=== PATIENT | male | born 1945 | race Caucasian/White ===

== ENCOUNTER → 2022-10-17 10:37 | Outpatient (BNVA) | payer MEDICARE, SELFPAY | PROVIDERS: Visit Provider Urology | DX: R31.0 Gross hematuria (principal); N32.89 Other specified disorders of bladder; R33.8 Other retention of urine | CPT/HCPCS: 52000; 99203; 99205 ==

== ENCOUNTER 2022-10-17 15:29 | Inpatient (IN) | payer MEDICARE, SELFPAY ==
[2022-10-17] VITALS (8 sets, daily range): BP systolic 125–167; BP diastolic 66–90; PULSE 69–104; RESP 15–16; TEMP 36.4–36.8; O2SAT 99–100; BMI 21.2; BMI 19.4
[2022-10-17] MEDS: sodium chloride 0.9% 1,000 ML 999 ML IV (16:40)
--- NOTE | 2022-10-17 16:46 | W.ED.MALEGU ---
HPI - Male Genitourinary General: Chief complaint: Urogenital-Male Stated complaint: Ovidio sent, urogenital Time Seen by Provider: 10/17/22 15:46 Source: patient Mode of arrival: ambulatory History of Present Illness: 76-year-old male referred to the ER by Dr. Nolan. He has been having difficulty with emptying his bladder due to blood clots. He has a known bladder mass and's been leading. He is not on any anticoagulants. Dr. Nolan had seen him in the office placed a Rivera and was irrigating but not could not get a clear referred him to the emergency room for further evaluation and admission. Patient denies any fever sweats chills has had urinary retention. Onset (ago): month(s) Duration: constant Location: abdomen Severity: severe Quality: aching Relieving factors: none Exacerbating factors: none Associated symptoms: Reports dysuria, hematuria, urinary retention and mass; Deny discharge, fevers/chills, nausea, rash, swelling, urinary incontinence or vomiting Review of Systems Const: Denies: fever(s), chills, body aches, change in appetite, fatigue or malaise ENMT: Denies: throat pain, ear or mastoid pain, nasal discharge or nasal congestion Card: Denies: chest pain, edema, dyspnea on exertion or orthopnea Resp: Denies: dyspnea, productive cough or non-productive cough GI: Reports: abdominal pain; Denies: nausea or vomiting : Reports: difficulty urinating, dysuria and hematuria; Denies: urinary incontinence Skin/Breast: Denies: rash or pruritus FOR[facility]LY [facility] ED PFSH: Medical History Clot retention of urine Gross hematuria Family History Father , AT AGE 48 MVA (motor vehicle accident) Mother , AT AGE 79 Liver disease Social History Smoking and tobacco status: former smoker Alcohol intake: current Alcohol intake frequency: 0-2 Drinks per Day Marital status: Current occupational status: retired History of recent travel: No Physical Exam Const: COMMON NORMALS: no acute distress GENERAL APPEARANCE: cooperative and comfortable ORIENTATION/CONSCIOUSNESS: Yes awake, Yes oriented to person, Yes oriented to place and Yes oriented to time HENMT: COMMON NORMALS: normocephalic, atraumatic and hearing grossly normal bilaterally HEAD & SCALP: normocephalic and atraumatic Resp: COMMON NORMALS: normal respiratory effort, No retractions, No use of accessory muscles and clear to auscultation bilaterally AUSCULTATION: clear to auscultation bilaterally Cardio: COMMON NORMALS: regular rate, regular rhythm and No murmurs present (Cardio) RATE: regular rate RHYTHM: regular rhythm GI: COMMON NORMALS: Soft to palpation and No hepatosplenomegaly present AUSCULTATION: Yes normoactive bowel sounds PALPATION: Yes Soft to palpation, No Tenderness to palpation present (GI), No Guarding due to palpation present (GI) and Yes No hepatosplenomegaly present : COMMON NORMALS: Yes no CVA tenderness BLADDER/KIDNEY EXAM: Yes no CVA tenderness Back/Pelvis: COMMON NORMALS: no CVA tenderness Extremity: COMMON NORMALS: normal to inspection, capillary refill normal, no clubbing, cyanosis or edema, no calf tenderness and no pedal edema Neuro: SENSORIUM/ORIENTATION: Yes oriented to person, Yes oriented to place and Yes oriented to time Skin: COMMON NORMALS: no rashes or lesions noted GENERAL SKIN EXAM: no rashes or lesions noted Course Vital Signs: Vital signs: Vital Signs Temperature 98.2 F 10/17/22 15:39 Pulse Rate 69 10/17/22 16:33 Respiratory Rate 16 10/17/22 16:33 Blood Pressure 157/73 10/17/22 16:33 Pulse Oximetry 100 10/17/22 16:33 Oxygen Delivery Me thod 10/17/22 16:33 MDM - Male Medical Decision Making Hematuria with urinary retention. Zosyn initiated labs have been drawn and patient movements Dr. Nolan orders written Medical Records I reviewed the patient's medical records. Lab Data I reviewed the patient's lab results. 10/17/22 16:27 10/17/22 16:27 Discharge Plan Discharge Patient Disposition: Admitted As Inpatient Clinical Impression: Gross hematuria, Clot retention of urine, Bladder mass Condition: Stable Coding Level of Care Code ED Ui Ux Web Developer for Myranda Azul
[2022-10-17] MEDS: piperacillin-tazobactam 3.375 GM in sodium chloride 0.9% (plus) 50 ML IV (16:56)
[2022-10-17 17:07] LABS: Basophils % 0.1 %; Eosinophils % 0.1 %; Hematocrit 21.2 % (42.0-52.0); Lymphocytes # 0.2 10^3/uL (0.8-4.8); Lymphocytes % 1.3 %; Mean Corpuscular HGB Conc 30.7 g/dL (30.0-36.0); Mean Corpuscular Hemoglobin 27.2 pg (28.0-34.0); Mean Corpuscular Volume 88.7 fl (80-94); Mean Platelet Volume 10.9 fL (7.4-10.4); Monocytes # 0.4 10^3/uL (0.2-0.9); Monocytes % 2.7 %; Neutrophils # 12.15 10^3/uL (1.8-7.7); Neutrophils % 95.2 %; Nucleated Red Blood Cells % 0 %; Platelet Count 289 10^3/cmm (130-400); Red Blood Count 2.39 10^6/uL (4.1-5.3); Red Cell Distribution Width 16.7 % (12.1-15.1); White Blood Count 12.8 10^3/uL (4.0-10.0)
[2022-10-17 18:26] LABS: Hemoglobin 6.5 g/dL (11.7-16.6)
[2022-10-17 18:35] LABS: Alanine Aminotransferase 10 U/L (0-41); Alkaline Phosphatase 63 U/L (40-130); Anion Gap 31.4 (5-19); Aspartate Amino Transferase 14 U/L (0-40); Calcium 8.8 mg/dL (8.5-10.5); Chloride 102 mmol/L (98-107); Globulin 3.7 g/dL (1.3-4.6); Glucose 122 mg/dL (65-115); Potassium 6.4 mmol/L (3.5-5.1); Sodium 135 mmol/L (136-145); Total Bilirubin 0.2 mg/dL (0.15-1.2); Total Protein 6.7 g/dL (6.6-8.7)
[2022-10-17 18:41] LABS: Blood Urea Nitrogen 177 mg/dL (8-23); Osmolality Calculated 340 mOsm/kg (285-295)
[2022-10-17 18:42] LABS: Carbon Dioxide 8 mmol/L (22-29); Creatinine Clr Calc Pharmacy 2.3651
[2022-10-17 20:13] LABS: Add Urine Microscopic? YES; Bilirubin Urine Neg (Negative); Blood Urine 3+ (Negative); Glucose Urine UA Norm (Normal); Ketones Urine Negative (Negative); Leukocyte Esterase Urine Trace (Negative); Nitrate Urine Negative (Negative); Protein Urine 3+ (Negative); RBC Urine TOO NUMEROUS TO CNT /hpf (0-2); Specific Gravity, Urine 1.005 (1.005-1.030); Squamous Epithelial Cell Urine 0-4 /hpf (0-5); Urine Appearance Hazy (CLEAR); Urine Color Red (Yellow); Urobilinogen Urine Norm (Negative); pH Urine 7 (5-7)
[2022-10-17 20:14] LABS: Add Urine Culture? Yes; WBC Urine 0-4 /hpf (0-5)
[2022-10-17] MEDS: sodium chloride 0.9% 1,000 ML 100 ML IV (20:43)
--- NOTE | 2022-10-17 21:25 | PC.NURSE ---
Patient arrived to the floor, Dr. Nolan notified of patient HGB 6.5, 2 units of RBC ordered.
--- NOTE | 2022-10-17 22:19 | PC.NURSE ---
Patient had leaking around urinary catheter, 750ml was used to manually irrigate, several small clots were removed.
--- NOTE | 2022-10-17 22:33 | CTR_ITS ---
PROCEDURE INFORMATION: Exam: CT Abdomen And Pelvis Without Contrast Exam date and time: 10/17/2022 11:13 PM Age: 76 years old Clinical indication: Unable to urinate. Receiving bladder irrigation. Other: Bola creat 28; Additional info: Bola CR 28 TECHNIQUE: Imaging protocol: Computed tomography of the abdomen and pelvis without contrast. Radiation optimization: All CT scans at this facility use at least one of these dose optimization techniques: automated exposure control; mA and/or kV adjustment per patient size (includes targeted exams where dose is matched to clinical indication); or iterative reconstruction. COMPARISON: No relevant prior studies available. RADIATION DOSE METRICS: Total DLP (mGy-cm): 401.14 FINDINGS: Lungs: Lung bases are clear. Liver: The liver is normal. Gallbladder and bile ducts: The gallbladder is normal. There is no biliary dilation. Pancreas: There is mild atrophy of the pancreas. Spleen: The spleen is unremarkable. Adrenal glands: The adrenal glands are unremarkable. Kidneys and ureters: Moderate bilateral hydronephrosis and diffuse hydroureter. Stomach and bowel: The stomach is unremarkable. The small bowel is nondilated. There is mild distal descending and sigmoid colonic diverticulosis without evidence of diverticulitis. Appendix: The appendix is not visible. Intraperitoneal space: No intraperitoneal fluid air. There is a small volume intraperitoneal free fluid in the right upper and lower abdomen. Vasculature: There is moderate aortic atherosclerotic disease. Lymph nodes: Bilateral common and internal iliac lymphadenopathy. Diffuse retroperitoneal lymphadenopathy. Urinary bladder: The Rivera catheter is appropriately positioned with the bulb and tip within the bladder lumen. Irregular thickening of the bladder base and upper aspect of the prostate gland. Reproductive: Irregular thickening of the bladder base and upper aspect of the prostate gland. Extraperitoneal space: Moderate volume of extraperitoneal fluid and trace gas anterior to the urinary bladder. The bladder is distended and filled with high attenuation material consistent with thrombus. There is minimal gas in the lumen. Bones/joints: There is moderate degenerative disease in the lumbar spine. The pelvis and hips are unremarkable. Soft tissues: The abdominal wall is intact. CT/CT kidney stone [id number] IMPRESSION: 1. 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 2. Distended bladder filled with blood. Appropriately position Rivera catheter. 3. Extraperitoneal gas and fluid anterior to the bladder consistent with perforation of the anterior bladder wall. 4. Moderate bilateral hydronephrosis and diffuse hydroureter consistent with obstruction at the level of the bladder. 5. Pelvic and retroperitoneal lymph node metastases. 6. Incidental findings above.
--- NOTE | 2022-10-17 22:50 | PC.NURSE ---
Patient's catheter was not draining with CBI wide open, patient was experiencing bladder distention. 850 ml was used to manually irrigate until no clots were expelled. A large amount of small to moderate sized clots were removed. Some fluid was not able to be measured due to draining onto bed.
[2022-10-17] MEDS: dextrose 50% syringe 50 mL IVP (22:55)
[2022-10-17] MEDS: insulin regular-human 10 UNIT in SYRINGE 1 EACH IVP (22:56)
--- NOTE | 2022-10-17 22:56 | ECG_ITS ---
[facility] Test Date: 2022-10-18 Pat Name: Mesfin Sandy Department: Room: ICU11 Gender: Male Patient Financial Coordinator: : 1945 Requested By: Day Ley Order Number: [id number] Lakeisha MD: Nitesh Oliva M.D. Measurements Intervals Newton Rate: 84 P: 61 WY: 134 QRS: 77 QRSD: 81 T: 84 QT: 351 QTc: 416 Interpretive Statements SINUS RHYTHM No previous ECG available for comparison Electronically Signed On 10-20-2022 18:25:05 ARTIFICIAL BREEDING TECHNICIAN by Nitesh Oliva M.D. [id number]
[2022-10-17 23:06] LABS: Glucose Point of Care 198 mg/dL (70-110)
[2022-10-17 23:26] LABS: INR 1.41 (0.8-1.2)
[2022-10-17 23:31] LABS: Alanine Aminotransferase 9 U/L (0-41); Albumin Level 2.9 g/dL (3.5-5.2); Alkaline Phosphatase 55 U/L (40-130); Anion Gap 32.8 (5-19); Aspartate Amino Transferase 13 U/L (0-40); Calcium 8.1 mg/dL (8.5-10.5); Chloride 98 mmol/L (98-107); Globulin 3.3 g/dL (1.3-4.6); Glucose 443 mg/dL (65-115); Sodium 131 mmol/L (136-145); Total Bilirubin 0.2 mg/dL (0.15-1.2); Total Protein 6.2 g/dL (6.6-8.7)
--- NOTE | 2022-10-17 23:53 | PC.NURSE ---
CBI stopped per Dr. Ley's order.
[2022-10-17 23:55] LABS: Blood Urea Nitrogen 192 mg/dL (8-23); Carbon Dioxide 7 mmol/L (22-29); Potassium 6.8 mmol/L (3.5-5.1)
[2022-10-17 23:56] LABS: Osmolality Calculated 355 mOsm/kg (285-295)
[2022-10-18] VITALS (69 sets, daily range): BP systolic 129–160; BP diastolic 67–120; PULSE 74–123; RESP 15–27; TEMP 36.1–36.8; O2SAT 98–100
--- NOTE | 2022-10-18 00:02 | P.CONIM_ITS ---
Providers/Reason For Consult Consulting Physician/Specialty*: aDy Anne, Hospitalist Reason for Consult*: Anemia, GENEVIEVE, hyperkalemia Attending Physician: Martinez Nolan MD Primary Care Provider: Shen Kelly MD History of Present Illness History of Present Illness Mesfin Sandy is a 76 year old male with no known significant PMH. He started experiencing hematuria in June 2022, was diagnosed with a UTI by his PCP and recived a round of abx. He remained asmptomatic for 42 days but then hematuria strated again. He visited PCP and local ER where he was again diagnosed with UTI and received precriptions for bactrim and macrobid. No imaging had been performed. Most recently he visited an outside ER on September 24 for hematuria where again he was given a prescription for antibiotics and advised to follow- up with urology as outpatient. He presented to Dr. Nolan's office earlier today for further evaluation. He complained of extreme weakness and lethargy at this visit. UA was grossly bloody. Prostate was noted to be enlarged and indurated. He underwent cystoscopy where the bladder was poorly visualized, possibility of a papillary mass near the 2 o'clock position at the bladder neck was noted. Huge amount of clot was noted in the bladder. Patient was \admitted to the hospital for clot evacuation, manual irrigation and CBI, possible TURBT. He presented to the emergency for further admission. Labs were still pending at the time of admission and patient was brought up to the floor. Subsequently 1 CBC and CMP returned, gross abnormalities were noted on this blood work. Hemoglobin was at 6.5. He is currently running his first unit of packed red blood cell transfusion. Patient is extremely pale though hemodynamically stable at this time. His creatinine returned at 28, labs were repeated to ensure accuracy and repeat creatinine is now at 34. He is noted to have hyperkalemia with potassium of 6.8. Metabolic acidosis with bicarb of 7, anion gap of 32.8. Hospitalist service has been contacted given these gross abnormalities. Noncontrast abdominal CT was obtained which is showing mass at the bladder outlet with gross bilateral hydronephrosis and hydroureter. There is pelvic and retroperitoneal lymph node metastases. Large amount of blood is seen in the bladder. Also noted is perforation of the anterior bladder wall with extravas ation of fluid and gas into the extraperitoneal space. Patient and his at his bedside deny any past history of CKD. Patient has no other known comorbidities. No history of hypertension diabetes mellitus. He smoked very briefly when he was in high school. Has quit over 50 years ago. Surprisingly he denies any symptoms of abdominal pain, nausea, vomiting or diarrhea. Denies any samantha or hematemesis. He has apparently been passing urine. Review of Systems General: Reports: 10 or more systems reviewed and unremarkable except in HPI and below Const: Denies: fever(s), chills or body aches Eyes: Denies: change in vision, blurry vision or photophobia ENMT: Reports: hoarseness; Denies: throat pain, enlarged tonsils, odynophagia or nasal congestion Card: Denies: chest pain, palpitations, irregular heart rhythm, edema, swelling of feet/ankles, lightheadedness, pre-syncope, dyspnea on exertion or orthopnea Resp: Denies: dyspnea, productive cough, non-productive cough, wheezing, stridor, pain on inspiration, change in phlegm color, hemoptysis or chest co ngestion GI: Denies: abdominal pain, nausea, vomiting, hematemesis, coffee ground emesis, dysphagia, heartburn, diarrhea, constipation, GI cramping, change in stool character, hematochezia or melena : Denies: flank pain, dysuria, urinary frequency, urinary urgency, urinary hesitancy or hematuria Musc: Denies: neck pain, back pain, extremity pain, joint swelling, joint warmth or deformity Neuro: Denies: headache(s), numbness in extremities, weakness in extremities, sensory changes, difficulty walking, frequent falls, dizziness, vertigo, behavioral changes, Slurred speech present or seizure-like activity Psych: Denies: anxiety, depression, suicidal ideation or homicidal ideation Endo: Denies: polyuria, polydipsia, tired all the time, cold intolerance or hot flashes Torrey/Lymph: Denies: easy bruising or easy bleeding Medications/Allergies Home Medications Medication Instructions Recorded Confirmed Last Taken Type ibuprofen 200 mg tablet 200 mg PO Q6H PRN Pain 10/17/22 10/17/22 Unknown History Allergies Allergy/AdvReac Type Severity Reaction Status Date / Time tetanus toxoid, adsorbed Allergy Unknown Verified 10/17/22 16:10 steroid Allergy Unknown Unknown Uncoded 10/17/22 11:06 fish protein Allergy Unknown Uncoded 10/17/22 11:06 Current Medications Generic Name Dose Route Start Last Admin Trade Name Nahun PRN Reason Stop Dose Admin Piperacillin Sod/Tazobactam 50 mls @ 100 mls/hr 10/17/22 16:45 10/17/22 18:26 Sod 3.375 gm/ Sodium Chloride IV Infused Q12H TUCKER Infusion Protocol Sodium Chloride 1,000 mls @ 100 mls/hr 10/17/22 20:12 10/17/22 20:43 Sodium Chloride 0.9% IV 100 mls/hr .Q10H TUCKER Administration PFSH Acute PFSH: Medical History Clot retention of urine Gross hematuria Family History Father , AT AGE 48 MVA (motor vehicle accident) Mother , AT AGE 79 Liver disease Social History Smoking and tobacco status: former smoker Alcohol intake: current Alcohol intake frequency: 0-2 Drinks per Day Marital status: Current occupational status: retired History of recent travel: No Vitals/I&O/Wt Last Vital Signs Temp 97.8 F 10/17/22 23:49 Pulse 88 10/17/22 23:49 Resp 16 10/17/22 23:49 BP 156/71 10/17/22 23:49 Pulse Ox 100 10/17/22 23:49 O2 Del Method 10/17/22 20:41 10/17/22 10/17/22 10/18/22 14:59 22:59 06:59 Intake Total 1050 / 1050 0.1 / 1050.1 Balance 1050 / 1050 0.1 / 1050.1 Weight last 48 hrs Weight 63.321 kg Weight 68.946 kg Physical Exam Narrative: General: No acute distress, AO x3 HEENT: PERRLA, pupils bilaterally equal and reactive, pallors not present Chest: Normal vesicular breath sounds, no added sounds, equal good air entry bilaterally CVS: S1-S2 regular, no murmurs, no tachycardia, no gallops, no rubs Abdomen: Soft, suprapubic distension+, discomfort to palpation + Neuro: No focal deficits, no facial deformity, AO x3, power 5/5 in all limbs Data 10/17/22 16:27 10/17/22 23:05 Other Labs: Radiology Impressions Abdomen/Pelvis CT 10/17/22 22:33 IMPRESSION: 1. 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 2. Distended bladder filled with blood. Appropriately position Rivera catheter. 3. Extraperitoneal gas and fluid anterior to the bladder consistent with perforation of the anterior bladder wall. 4. Moderate bilateral hydronephrosis and diffuse hydroureter consistent with obstruction at the level of the bladder. 5. Pelvic and retroperitoneal lymph node metastases. 6. Incidental findings above. ADDENDUM: 10/17/22 [id number] THIS REPORT CONTAINS FINDINGS THAT MAY BE CRITICAL TO PATIENT CARE. The findings were verbally communicated via telephone conference with DAY ANNE at 11:44 PM E MERCHANT on 10/17/2022. The findings were acknowledged and understood. Laboratory Results WBC 12.8 10^3/uL (4.0-10.0) H 10/17/22 16: RBC 2.39 10^6/uL (4.1-5.3) L 10/17/22 16: Hgb 6.5 g/dL (11.7-16.6) L* 10/17/22 16: Hct 21.2 % (42.0-52.0) L 10/17/22 16:27 MCV 88.7 fl (80-94) 10/17/22 16: MCH 27.2 pg (28.0-34.0) L 10/17/22 16: MCHC 30.7 g/dL (30.0-36.0) 10/17/22 16: RDW 16.7 % (12.1-15.1) H 10/17/22 16: Plt Count 289 10^3/cmm (130-400) 10/17/22 16: MPV 10.9 fL (7.4-10.4) H 10/17/22 16:27 Neut % (Auto) 95.2 % 10/17/22 16: Lymph % (Auto) 1.3 % 10/17/22 16: Oxford % (Auto) 2.7 % 10/17/22 16:27 Eos % (Auto) 0.1 % 10/17/22 16: Baso % (Auto) 0.1 % 10/17/22 16: Neut # (Auto) 12.15 10^3/uL (1.8-7.7) H 10/17/22 16: Lymph # (Auto) 0.2 10^3/uL (0.8-4.8) L 10/17/22 16: Oxford # (Auto) 0.4 10^3/uL (0.2-0.9) 10/17/22 16: Eos # (Auto) 0.0 10^3/uL (0.0-0.8) 10/17/22 16: Baso # (Auto) 0.0 10^3/uL (0.0-0.1) 10/17/22 16: Nucleated RBC % (auto) 0 % 10/17/22 16: Nucleated RBCs # 0.0 /100WBC 10/17/22 16: PT 17.60 SECONDS (12.1-14.9) H 10/17/22 23:05 INR 1.41 (0.8-1.2) H 10/17/22 23:05 Sodium 131 mmol/L (136-145) L 10/17/22 23:05 Potassium 6.8 mmol/L (3.5-5.1) H* 10/17/22 23:05 Chloride 98 mmol/L (98-107) 10/17/22 23:05 Carbon Dioxide 7 mmol/L (22-29) L* 10/17/22 23:05 Anion Gap 32.8 (5-19) H 10/17/22 23:05 BUN 192 mg/dL (8-23) H* 10/17/22 23:05 Creatinine 34.0 mg/dL (0.7-1.2) H* 10/17/22 23:05 GFR Calculation Not Reportable 10/17/22 23:05 Glucose 443 mg/dL (65-115) H 10/17/22 23:05 POC Glucose 198 mg/dL (70-110) H 10/17/22 22:59 Calculated Osmolality 355 mOsm/kg (285-295) H 10/17/22 23:05 Calcium 8.1 mg/dL (8.5-10.5) L 10/17/22 23:05 Total Bilirubin 0.2 mg/dL (0.15-1.2) 10/17/22 23:05 AST 13 U/L (0-40) 10/17/22 23:05 ALT 9 U/L (0-41) 10/17/22 23:05 Alkaline Phosphatase 55 U/L (40-130) 10/17/22 23:05 Total Protein 6.2 g/dL (6.6-8.7) L 10/17/22 23:05 Albumin 2.9 g/dL (3.5-5.2) L 10/17/22 23:05 Globulin 3.3 g/dL (1.3-4.6) 10/17/22 23:05 Urine Color Red (Yellow) 10/17/22 19:48 Urine Appearance Hazy (CLEAR) A 10/17/22 19:48 Urine pH 7 (5-7) 10/17/22 19:48 Ur Specific Bradford 1.005 (1.005-1.030) 10/17/22 19:48 Urine Protein 3+ (Negative) H 10/17/22 19:48 Urine Glucose (UA) Norm (Normal) 10/17/22 19:48 Urine Ketones Negative (Negative) 10/17/22 19:48 Urine Blood 3+ (Negative) H 10/17/22 19:48 Urine Nitrate Negative (Negative) 10/17/22 19:48 Urine Bilirubin Neg (Negative) 10/17/22 19:48 Urine Urobilinogen Norm mg/dL (Negative) 10/17/22 19:48 Ur Leukocyte Esterase Trace (Negative) H 10/17/22 19:48 Urine RBC Too numerous to cnt /hpf (0-2) H 10/17/22 19:48 Urine WBC 0-4 /hpf (0-5) H 10/17/22 19:48 Ur Squamous Epith Cells 0-4 /hpf (0-5) H 10/17/22 19:48 Amorphous Sediment Not Reportable 10/17/22 19:48 Urine Bacteria None /hpf (NONE) 10/17/22 19:48 Blood Type A Positive 10/17/22 20:35 Rho(D) Type Positive 10/17/22 20:35 Antibody Screen Negative 10/17/22 20:35 Crossmatch See Detail 10/17/22 20:35 A&P Assessment and plan (1) Gross hematuria: (2) Bladder mass: (3) Perforation of bladder: (4) Acute renal failure: (5) Acute blood loss anemia: Plan 76-year-old male with no known past medical history, has developed hematuria in June 2022. Had been intermittent, now persistent since September 24, 2022. He was being treated outpatient for urinary tract infections. Presented as outpatient to Dr. Nolan's office for evaluation of hematuria. He was admitted for clot evacuation and CBI. After admission his labs started to return as grossly abnormal with anemia hemoglobin 6.5, creatinine of 34, hyperkalemia with potassium of 6.8. CT of the abdomen and pelvis has shown bladder outlet mass, possibly neoplastic, with retroperitoneal metastases. Bilateral hydronephrosis and hydroureter. Perforation of the anterior bladder wall with extravasation of contents into the abdomen. Discontinue CBI at this time. He is currently getting his first of 2 ordered units of packed red blood cell transfusion. He is hemodynamically stable at this time with blood pressure 148/74, heart rate of 78, saturating 100% on room air. Patient will need definitive bladder surgery, defer to urology whether this would be a bladder repair versus cystectomy. To restore his kidney function and correct his electrolyte abnormalities including hyperkalemia and metabolic acidosis, patient will likely need hemodialysis support. Unfortunately we do not have general surgery or critical care at the hospital this weekend, therefore unable to place any HD access lines. He will be best served by transfer to a higher center where hemodialysis and complex urological surgery services are available. For his hyperkalemia, ordered for insulin dextrose, Kayexalate, nebulization with albuterol. We will repeat potassium after these interventions. Stat EKG. Place patient on telemetry monitoring Transfer to ICU Consult Attestations Medical Necessity Statement: per admitting, see above Critical Care Time: The high probability of a clinically significant, sudden or life threatening deterioration of the patient's [renal, urology] system(s) required my full and direct attention, intervention and personal management. The critical care time is as shown. This time is in addition to time spent performing any reported procedures but includes the following: [x] Data and vital sign review and interpretation [x] Patient assessment, examination and intervention [x] Documentation [x] Medication orders and management Critical Care Time (min): 45 Coding Level of Care Code Acute Cutlet Maker Pork for Chg Fwd Diagnoses Gross hematuria R31.0 Bladder mass N32.89 Perforation of bladder Acute renal failure N17.9 Acute blood loss anemia D62
--- NOTE | 2022-10-18 01:03 | PC.NURSE ---
Report called to ICU at this time.
[2022-10-18 01:11] LABS: SARS Covid-2 Antigen negative (Negative)
--- NOTE | 2022-10-18 01:29 | PC.NURSE ---
Patient has been transferred to ICU with all personal belongs.
[2022-10-18] MEDS: sodium polystyrene sulfonate 15 gm/60 mL Btl PO (01:45)
[2022-10-18 01:55] LABS: ABG PH Result 7.28 (7.35-7.45); Arterial Blood Gas Hematocrit 22.6 % (42-52); Base Excess ABG -17.6 mmol/L (-2.0-2.0); Blood Gas Operator Identificat JB; Blood Gas Sample Site Brachial, right; Blood Gas Sample Type Arterial; HCO3 ABG 7.4 mmol/L (22-26); Oxygen Device NC
[2022-10-18 01:56] LABS: ABG PCO2 15.9 mmHg (35-45)
[2022-10-18] MEDS: insulin regular-human 10 UNIT in SYRINGE 1 EACH IVP ×2 (02:02→04:37)
[2022-10-18] MEDS: calcium gluconate 0.9% NaCL 1 GM/50 ML PREMIX IV ×2 (02:02→04:44)
[2022-10-18 02:22] LABS: Glucose Point of Care 166 mg/dL (70-110)
[2022-10-18] MEDS: dextrose 50% syringe 50 mL IVP ×2 (02:28→04:37)
[2022-10-18 02:35] LABS: Alanine Aminotransferase 10 U/L (0-41); Alkaline Phosphatase 61 U/L (40-130); Anion Gap 31.2 (5-19); Aspartate Amino Transferase 14 U/L (0-40); Calcium 8.6 mg/dL (8.5-10.5); Chloride 95 mmol/L (98-107); Globulin 3.5 g/dL (1.3-4.6); Glucose 173 mg/dL (65-115); Potassium 6.2 mmol/L (3.5-5.1); Sodium 127 mmol/L (136-145); Total Bilirubin 0.4 mg/dL (0.15-1.2); Total Protein 6.5 g/dL (6.6-8.7)
[2022-10-18 02:46] LABS: Osmolality Calculated 328 mOsm/kg (285-295)
[2022-10-18 02:47] LABS: Blood Urea Nitrogen 180 mg/dL (8-23); Carbon Dioxide 7 mmol/L (22-29)
[2022-10-18 02:51] LABS: Basophils % 0.1 %; Hematocrit 21.5 % (42.0-52.0); Hemoglobin 6.7 g/dL (11.7-16.6); Lymphocytes # 0.1 10^3/uL (0.8-4.8); Lymphocytes % 0.5 %; Mean Corpuscular HGB Conc 31.2 g/dL (30.0-36.0); Mean Corpuscular Hemoglobin 28.6 pg (28.0-34.0); Mean Corpuscular Volume 91.9 fl (80-94); Mean Platelet Volume 11.2 fL (7.4-10.4); Monocytes # 0.5 10^3/uL (0.2-0.9); Monocytes % 3.7 %; Neutrophils # 13.22 10^3/uL (1.8-7.7); Neutrophils % 95.2 %; Nucleated Red Blood Cells % 0.3 %; Platelet Count 230 10^3/cmm (130-400); Red Blood Count 2.34 10^6/uL (4.1-5.3); Red Cell Distribution Width 16.1 % (12.1-15.1); White Blood Count 13.9 10^3/uL (4.0-10.0)
--- NOTE | 2022-10-18 02:54 | PC.NURSE ---
Critical labs called to Dr. Ley. Order given to redraw potassium in two orders.
[2022-10-18] MEDS: sodium polystyrene sulfonate 15 gm/60 mL Btl 30 GM PR (05:06)
[2022-10-18] MEDS: piperacillin-tazobactam 3.375 GM in sodium chloride 0.9% (plus) 50 ML IV (05:24)
[2022-10-18 05:52] LABS: Potassium 6.3 mmol/L (3.5-5.1)
--- NOTE | 2022-10-18 06:12 | PC.NURSE ---
PT transferred to [facility] in [place], [place] via air evac. All belongings sent with PT's family.
== END 2022-10-18 05:50 | disposition short-term general hospital (02) | DRG 699 ==
LOC: ER 17:29 → MEDSURG 18:39 → ICU 10-18 01:24
PROVIDERS: Student in an Organized Health Care Education/Training Program; Admitting Provider Urology; Emergency Provider Family Medicine; PCP Internal Medicine Cardiovascular Disease; Visit Provider Urology
DX: N32.89 Other specified disorders of bladder (principal); D62 Acute posthemorrhagic anemia; E87.20 Acidosis, unspecified; N17.9 Acute kidney failure, unspecified; N13.30 Unspecified hydronephrosis; R31.0 Gross hematuria; E87.5 Hyperkalemia; N13.4 Hydroureter; N40.1 Benign prostatic hyperplasia with lower urinary tract symptoms; R33.8 Other retention of urine; Z87.440 Personal history of urinary (tract) infections
CPT/HCPCS: 36415; 36416; 36430; 74176; 80053; 81001; 81003; 82803; 82962; 84132; 85025; 85610; 86850; 86900; 86920; 87086; 87426; 93005; 96365; 99291; J0610; J1815; J2543; J7030; P9016